=== PATIENT | female | born 1975 ===

== ENCOUNTER → 2016-10-12 | Outpatient (CLI) | payer MEDICARE, MEDICAID ==
[~2016-10-12] MED LIST: ALBUTEROL2.5 MG/0.5 INH; ALPHAGAN 05 ML/1 BOT; ALPHAGAN P OPHTH; COMBIGAN EYE DRO5 ML; DULERA 200 MCG/51 EA INH; ILOTYCIN1 GM OPHTH; LATUDA20 MG PO; PHENERGAN25 M1 PO; PRED FORTE 1%5 ML OPHTH; PRILOSEC20 MG PO; PROAIR HFA8.5 GM; PROTONIX20 MG PO; REDNESS RELIEVE15 ML OPHTH; SINGULAIR10 MG PO; SYMBICORT 16010.2 GM; SYMBICORT 16010.2 GM INH; TRILEPTAL300 MG PO; WELLBUTRIN XL300 M2 PO; ZOFRAN ODT8 MG SL; ZYPREXA10 MG PO
== END | disposition disaster alternative care site (69) ==
LOC: LGSMG 12:31
DX: M79.89 Other specified soft tissue disorders (principal)

== ENCOUNTER → 2016-10-24 | Outpatient (CLI) | payer MEDICARE, MEDICAID ==
--- NOTE | ~2016-10-24 | PUL ---
PATIENT'S NAME: [facility] AGE: 41 Y [address] ROOM: [place] [address] LOCATION: [facility] ADMIT DATE: 10/24/2016 Pulmonary DISCHARGE DATE: FAMILY PHYSICIAN: William Coleman MD ATTENDING PHYSICIAN: STONE RAMIREZ NAME OF PROCEDURE: Pulmonary Function Test DATE OF PROCEDURE: October 24, 2016 TECH: ATripe, RESEARCH DEVELOPMENT DIRECTOR REASON FOR EXAM: COPD RESULTS: 1. FVC was 2.57 liters which is 75% of predicted and low, FEV1 was 2.17 liters which is 78% of predicted and low, and FEV1/FVC was 84% and normal. The flow volume curve did not reveal any significant airflow limitation. After bronchodilator administration FVC increased to 2.7 liters which is a 5% increase and FEV1 increased to 2.24 liters which is a 3% increase. FEV1/FVC was 83%. 2. DLCO was 11.7 with an adjusted DLCO of 12.2 which is 47% of predicted and low. 3. Total lung capacity was 3.27 liters which is 70% of predicted and low, and residual volume was 0.69 liters which is 46% of predicted and low. PHYSICIAN INTERPRETATION: The patient has no airflow limitation and no significant bronchodilator response. Her diffusion capacity is moderately low. There is evidence of mild restrictive lung disease. STONE RAMIREZ MD RFLesia/priya /[id number] dtt: 10/26/16 0942 , STONE RAMIREZ dtd: 10/26/16 0731
== END | disposition disaster alternative care site (69) ==
LOC: GRTH 08:44
DX: J44.9 Chronic obstructive pulmonary disease, unspecified (principal); J98.4 Other disorders of lung

== ENCOUNTER → 2016-10-29 | Outpatient (CLI) | payer MEDICARE, MEDICAID | END | disposition disaster alternative care site (69) | LOC: GRAD 15:38 | DX: J98.4 Other disorders of lung (principal); R94.2 Abnormal results of pulmonary function studies ==

== ENCOUNTER → 2017-02-01 | Outpatient (CLI) | payer MEDICARE, MEDICAID | LOC: LKCL 13:08 | DX: Z12.4 Encounter for screening for malignant neoplasm of cervix (principal) | CPT/HCPCS: G0145 ==